=== PATIENT | male | born 1950 | race Caucasian/White ===

== ENCOUNTER → 2018-03-01 | Outpatient (CLI) | payer MEDICARE ==
--- NOTE | 2018-03-01 10:59 | XR ---
EXAMINATION TYPE: XR Hip Complete RT DATE OF EXAM: 03/01/2018 CLINICAL HISTORY: Right hip pain and radiculopathy TECHNIQUE: AP and frogleg views of the right hip are obtained. COMPARISON: None. FINDINGS: There is no acute fracture/dislocation evident in the right hip. There is moderate femoral acetabular arthropathy with subchondral cysts, joint space narrowing in the cephalad direction and a cetabular roof sclerosis as well as small marginal osteophytes. No suspicious osseous lesion is seen. Osseous mineralization is within normal limits. The overlying soft tissue appears unremarkable. IMPRESSION: 1. No acute fracture or dislocation in the right hip. 2. Moderate femoral acetabular arthropathy.
--- NOTE | 2018-03-01 12:22 | XR ---
EXAMINATION TYPE: XR lumbar spine 2 or 3V DATE OF EXAM: 03/01/2018 CLINICAL HISTORY: Back pain TECHNIQUE: Frontal and lateral images of the lumbar spine are obtained. COMPARISON: None FINDINGS: There are 5 lumbar type vertebral bodies identified. Rudimentary disc is seen at S1-S2. T here is a dextroscoliotic curvature of the lumbar spine. Moderate to severe multilevel degenerative c hanges of intervertebral disc space narrowing, anterior osteophytes, endplate sclerosis and facet art hropathy throughout the lumbar spine. Vertebral bodies maintain normal vertebral body heights and ali gnment. Radiopaque circular density in the right lower quadrant likely relates to an ostomy. Overlyin g bowel is nondilated. IMPRESSION: 1. No acute fracture or malalignment is seen in the lumbar spine. 2. Moderate to severe multilevel degenerative change of the lumbar spine. 3. Dextroscoliotic curvature of the lumbar spine.
== END | disposition home or self-care (01) ==
LOC: RADXRMAIN 09:45
PROVIDERS: ATTEND Family Medicine
DX: M47.26 Other spondylosis with radiculopathy, lumbar region (principal); M41.86 Other forms of scoliosis, lumbar region; M12.851 Other specific arthropathies, not elsewhere classified, right hip
CPT/HCPCS: 72100; 73502

== ENCOUNTER → 2023-01-31 | Outpatient (CLI) | payer MEDICARE ==
--- NOTE | 2023-01-31 15:54 | US ---
EXAMINATION TYPE: US kidneys/renal and bladder DATE OF EXAM: 01/31/2023 COMPARISON: NONE CLINICAL INDICATION: Male, 73 years old with history of N28.1 CYST OF KIDNEY, ACQUIRED; Patient state s having an xray done at another facility and something was seen on a kidney. Hx colon cancer EXAM MEASUREMENTS: Right Kidney: 9.7 x 4.9 x 4.6 cm Left Kidney: 10.8 x 4.6 x 5.1 cm Suboptimal exam due to overlying bowel gas Right Kidney: No hydronephrosis or masses seen Left Kidney: No hydronephrosis or masses seen Bladder: Bladder wall= 4.8 mm. Moderately distended, anechoic. Prominent prostate. Bilateral Jets not seen There is no evidence for hydronephrosis at this point in time. No nephrolithiasis is seen. No yohan s are identified. The urinary bladder is anechoic with mildly thickened wall. Bilateral ureteral je ts are not seen. Mildly prominent prostate gland. IMPRESSION: 1. No hydronephrosis or nephrolithiasis. No renal mass identified. 2. Mild wall thickening of the urinary bladder. Correlate with urinalysis for cystitis.
== END | disposition home or self-care (01) ==
LOC: RADUSWWP 15:20
PROVIDERS: ATTEND Family Medicine
DX: N28.1 Cyst of kidney, acquired (principal); N32.89 Other specified disorders of bladder; Z85.038 Personal history of other malignant neoplasm of large intestine
CPT/HCPCS: 76770

== ENCOUNTER → 2025-03-06 | Outpatient (CLI) | payer MEDICARE ==
--- NOTE | 2025-03-06 13:53 | XR ---
EXAMINATION TYPE: XR foot complete LT DATE OF EXAM: 03/06/2025 1:16 PM COMPARISON: None CLINICAL INDICATION: Male, 75 years old with history of M79.672 PAIN IN LEFT FOOT; PHH, pain TECHNIQUE: XR foot complete LT examined in the AP, oblique, and lateral projections. FINDINGS: No evidence of any acute osseous pathology. Degeneration changes of the first digit metatarsophalang eal joint with mild joint space narrowing and osteophyte formation. Multifocal degeneration changes throughout the joints of the foot with osteophyte formation and martha int space narrowing. IMPRESSION: 1. No evidence of acute fracture. 2. Multifocal degeneration changes throughout the joints of the foot. [facility], , 03/06/2025 1:50 PM
== END | disposition home or self-care (01) ==
LOC: RADXRMAIN 12:59
PROVIDERS: ATTEND Family Medicine
DX: M19.072 Primary osteoarthritis, left ankle and foot (principal)